=== PATIENT | female | born 1940 | race Caucasian/White ===

== ENCOUNTER 2019-05-30 10:42 | Outpatient (CLI) | payer MEDICARE, BC | END 2019-05-30 23:59 | disposition home or self-care (01) | LOC: CVU 10:42 | PROVIDERS: ATTEND Internal Medicine Cardiovascular Disease | DX: I08.8 Other rheumatic multiple valve diseases (principal); I10 Essential (primary) hypertension; I48.91 Unspecified atrial fibrillation | CPT/HCPCS: 93306 ==